=== PATIENT | female | born 1990 | race Caucasian/White ===

== ENCOUNTER 2022-01-22 04:31 | Inpatient (IN) | payer BC, SELFPAY ==
[2022-01-22] VITALS (56 sets, daily range): BP systolic 91–137; BP diastolic 55–82; PULSE 88–136; RESP 16–18; TEMP 35.9–37.3; O2SAT 94–100; BMI 38.2
[2022-01-22 05:27] LABS: ROM Internal Control Test YES-OK TO RESULT pt. (Internal QC); ROM Patient Test Negative (Negative)
[2022-01-22] MEDS: LACTATED RINGERS 500 ML 999 ML IV ×3 (05:35→09:36)
[2022-01-22] MEDS: Lactated Ringers 1,000 ML 50 ML IV (05:45)
[2022-01-22 05:48] LABS: Absolute Lymphocyte Count 1.12 X10^3/uL (0.83-4.51); Absolute Neutrophil Count 17.4 X10^3/uL (2.0-7.7); Basophil# 0.02 X10^3/uL; Basophil% 0.1 % (0-1); Eosinophil# 0.01 X10^3/uL; Eosinophils% 0.1 % (0-5); Hematocrit 38.3 % (37-47); Hemoglobin 13.1 g/dL (12.0-15.0); Lymphocyte # 1.12 X10^3/ul (0.83-4.51); Lymphocyte % 5.8 % (19-41); Mean Corp Hgb Conc 34.2 g/dL (32-36); Mean Corpuscular Volume 90.5 fL (81-99); Mean Platelet Vol. 10.5 fl (6.2-12.0); Monocyte# 0.48 X10^3/uL; Monocyte% 2.5 % (0-10); NRBC Flagged by Analyzer 0 % (0-5); Neutrophil % 90.5 % (47-70); Platelet Count 278 K/mm3 (150-450); RBC Distribution Width CV 13.2 % (11.6-14.6); RBC Distribution Width SD 43.3 fl (35.1-43.9); Red Blood Count 4.23 M/mm3 (4.2-5.4); White Blood Count 19.2 K/mm3 (4.4-11.0)
[2022-01-22 05:59] LABS: Amphetamine Urine VISTA NEGATIVE (<1000 ng/mL); Barbiturate Urine VISTA NEGATIVE (< 200 ng/mL); Benzodiazepine Urine VISTA NEGATIVE (< 200 ng/mL); Cocaine Urine VISTA NEGATIVE (< 300 ng/mL); Ecstacy Urine VISTA NEGATIVE (< 500 ng/mL); Methadone Urine VISTA NEGATIVE (< 300 ng/mL); PCP Urine VISTA NEGATIVE (< 25 ng/mL); THC Urine VISTA NEGATIVE (< 50 ng/mL); Vista UDS pH Range 5
[2022-01-22] MEDS: fentaNYL-bupivacaine (epidural) 100 ML BAG EPIDURAL ×2 (07:20→12:08)
--- NOTE | 2022-01-22 11:58 | HP.PCM.OB_ITS ---
HPI - General General Date of Admission: 01/22/22 Date of Service: 01/22/22 Chief Complaint: labor HPI Narrative KELLI OSEI, is a 31 F 5-1 para 0 with EDC of 01/29/2022 who presents complaining contractions that started approximately 24 hours before arrival. They got more more intense. When she arrived she was found to be very uncomfortable and 3 cm. She was admitted for early labor. Labor has been progressing spontaneously. Her has been complicated to date by some anxiety. Maternal Data Information Final JENNIFER: 01/29/22 Gestational age: 39 0/7 PFSH [facility] [place] Medical History (Updated 01/22/22 @ 12:[address] Vibha Grewal MD) Anxiety Family history of hearing loss at age younger than 7 years Home Medications hydroxyzine HCl 10 mg PO 01/22/22 [History Last Taken Unknown] [id number] [] 1 tab PO DAILY 01/22/22 [History Last Taken Unknown] Allergy/AdvReac Type Severity Reaction Status Date / Time No Known Allergies Allergy Verified 01/22/22 05:39 Surgical History (Updated 01/22/22 @ 05:54 by Concepcion Fernandez) History of surgery Social History Smoking Status: Former smoker History Elective abortions Hx Para 0 Spontaneous abortions Hx # Term Pregnancies Ectopic pregnancies Hx # Pregnancies Multiple births # of living children NST FHR Rate Baby A Baseline: normal Variability:: Moderate Accelerations:: 15 x 15 ROS Constitutional Constitutional: Denies fatigue, fever(s) or malaise Eyes Eyes: Denies change in vision ENT HEENT: Denies dizziness or headache(s) Cardiovascular Cardiovascular: Denies chest pain, dyspnea or lightheadedness Respiratory/Chest Respiratory/Chest: Denies cough or dyspnea Gastrointestinal Gastrointestinal: Denies change in bowel habits Genitourinary Genitourinary: Denies burning urination or genital lesions Integumentary Integumentary: Denies rash Neurologic Neurologic: Denies confusion, dizziness, headache(s), numbness or weakness Vital Signs Vital Signs Vital Signs: 01/22/22 04:51 01/22/22 05:13 01/22/22 06:34 Temperature 96.7 F L Temperature Source Temporal Pulse Rate 106 H 96 Blood Pressure 122/82 H BP Systolic 122 BP Diastolic 82 Pulse Ox 96 01/22/22 06:39 01/22/22 06:40 01/22/22 06:43 Temperature Temperature Source Pulse Rate 90 96 104 H Blood Pressure 131/66 H 134/68 H BP Systolic 131 134 BP Diastolic 66 68 Pulse Ox 98 01/22/22 06:44 01/22/22 06:48 01/22/22 06:49 Temperature Temperature Source Pulse Rate 96 91 93 Blood Pressure 127/72 H BP Systolic 127 BP Diastolic 72 Pulse Ox 98 94 96 01/22/22 06:53 01/22/22 06:55 01/22/22 06:58 Temperature Temperature Source Pulse Rate 100 118 H 117 H Blood Pressure 126/69 H 108/57 L BP Systolic 126 108 BP Diastolic 69 57 Pulse Ox 98 01/22/22 07:00 01/22/22 07:03 01/22/22 07:05 Temperature Temperature Source Pulse Rate 132 H 116 H 136 H Blood Pressure 106/58 L BP Systolic 106 BP Diastolic 58 Pulse Ox 97 97 01/22/22 07:07 01/22/22 07:08 01/22/22 07:10 Temperature Temperature Source Pulse Rate 123 H 134 H 120 H Blood Pressure 104/56 L 104/57 L BP Systolic 104 104 BP Diastolic 56 57 Pulse Ox 96 01/22/22 07:13 01/22/22 07:15 01/22/22 07:19 Temperature Temperature Source Pulse Rate 127 H 120 H 114 H Blood Pressure 112/56 L 120/61 BP Systolic 112 120 BP Diastolic 56 61 Pulse Ox 97 01/22/22 07:20 01/22/22 07:23 01/22/22 07:25 Temperature Temperature Source Pulse Rate 120 H 114 H 111 H Blood Pressure 113/55 L BP Systolic 113 BP Diastolic 55 Pulse Ox 97 98 01/22/22 07:28 01/22/22 07:30 01/22/22 07:33 Temperature Temperature Source Pulse Rate 114 H 122 H 107 H Blood Pressure 112/58 L 115/60 BP Systolic 112 115 BP Diastolic 58 60 Pulse Ox 99 01/22/22 07:35 01/22/22 07:38 01/22/22 07:40 Temperature Temperature Source Pulse Rate 115 H 108 H 96 Blood Pressure 107/58 L BP Systolic 107 BP Diastolic 58 Pulse Ox 98 96 01/22/22 08:40 01/22/22 08:45 01/22/22 09:33 Temperature 98.1 F 97.9 F Temperature Source Temporal Temporal Pulse Rate 98 117 H 121 H Blood Pressure 117/61 91/55 L BP Systolic 117 91 BP Diastolic 61 55 Pulse Ox 99 99 99 01/22/22 10:42 01/22/22 11:33 01/22/22 11:34 Temperature 97.5 F L 97.6 F L Temperature Source Temporal Temporal Pulse Rate 97 115 H Blood Pressure 112/58 L 119/60 BP Systolic 112 119 BP Diastolic 58 60 Pulse Ox 100 Weight Weight: 94.71 kg Body Mass Index (BMI) 38.2 Physical Exam Const alert and no apparent distress General Appearance: cooperative HEENT normocephalic Resp normal respiratory effort Cardio regular rate GI soft to palpation GI Narrative: gravid, nontender, appropriate for gestational age Extremity no calf tenderness General Extremity: edema Skin no wounds Rashes: No rashes noted Psych activity/motor behavior normal Labs Labs Labs: Blood Type A POSITIVE Antibody Screen NEGATIVE Hct 38.3 % (37-47) Hgb 13.1 g/dL (12.0-15.0) Assessment & Plan (1) 39 weeks gestation of : PLAN: Admit for spontaneous labor. Consented for tox screen due to history of marijuana. She stopped using marijuana when she found out she was . Estimated weight is less than 4500 g clinically and pelvis clinically adequate to expect vaginal delivery. May have epidural or other standard pain control methods as needed and as desired during labor. (2) Active labor at term:
[2022-01-22] MEDS: Lactated Ringers 1,000 ML 200 ML IV (12:53)
[2022-01-22] MEDS: Oxytocin 30 units/NS 500 ml 30 UNITS/500 ML IV.SOLN 334 UNITS IV (13:46)
--- NOTE | 2022-01-22 14:12 | EX.PCM.OBRPT ---
Assessment & Plan (1) Active labor at term: (2) 39 weeks gestation of : (3) (spontaneous vaginal delivery): Maternal Data Information Final JENNIFER: 01/29/22 Gestational age: 39 0/7 Vaginal Delivery Maternal Presentation Maternal Presentation: Active Labor Operative Information Date of Procedure: 01/22/22 Pre-Operative Diagnosis: labor Post-Operative Diagnosis: same Surgery / Procedure Performed: Spontaneous Vaginal Delivery Type of Anesthesia: Epidural Special Medications: none Drain: Whyte to straight drain Estimated Blood Loss: 300 Time of Delivery: 13:44 Findings Description of Procedure: A vigorous female was delivered ENE over a small 1 cm first-degree vaginal laceration. The remainder the infant was delivered with maternal pushing and gentle traction only in less than 15 seconds. The Pitocin infusion was initiated for active management of the third stage. The cord was clamped and cut after 1 minute. The was attended to by the waiting nursing staff. The placenta was delivered spontaneously and intact. The cervix and vagina were intact. The small first-degree vaginal laceration was repaired with a single 3-0 Vicryl repeat [id number] suture. Sponge and needle counts were correct. A vaginal sweep was completed by me. Presentation: ENE Amniotic Membrane Rupture Type: Artificial Amniotic Fluid Description: Clear Placental Delivery Description: Spontaneous Placenta Disposition: [facility] Cord Vessel Description: 3 Vessels Cord Entanglement: None A Gender: Female (Rosalba Milner) (1 minute): 8 (5 minute): 9 Delayed Cord Clamping: Yes Post Vaginal Delivery Medications Given After Delivery: IV Pitocin Episiotomy Description: None Laceration: 1st degree (vaginal) Admit VTE Documentation VTE Present on Admission: No VTE Mechan Device Prophylaxis: None VTE Pharm Prophylaxis Ordered: No Reason Prophylaxis Not Ordered: Procedure Not Indicated
[2022-01-22] MEDS: 0.9% Saline Lock 10 ML Syringe IV (16:14)
[2022-01-22] MEDS: Ibuprofen 600 MG Tablet PO (19:22)
--- NOTE | 2022-01-22 23:01 | NURSING ---
HR per monitor was varying between 90 and 106. Radial pulse assessed to be 96bpm. Auscultated normal rhythm. Will continue to monitor. HR has been slightly tachycardic at times. Pt. reports that this isn't something new or unusual for her. She occasionally feels her heart racing and pt. reports her HR is normally 90s-120s.
--- NOTE | 2022-01-22 23:14 | NURSING ---
2310- Report given to Sohail Lundy RN who will be assuming care at this time.
[2022-01-23] VITALS (9 sets, daily range): BP systolic 107–125; BP diastolic 63–73; PULSE 74–86; RESP 16–18; TEMP 36.5–36.9; O2SAT 95
--- NOTE | 2022-01-23 09:02 | PCM.PN.OB ---
Subjective Subjective Doing well per patient and nursing staff. Ambulating and taking PO without difficulty. Voiding and passing flatus. Pain controlled. , services for assistance. Denies headache, visual changes, chest pain, shortness of breath, leg pain or increased bleeding. Lochia normal. Objective Data Objective Data Vital Signs: Vital Signs Temp Pulse Resp BP Pulse Ox 98.0 F 82 18 111/63 98 01/23/22 08:21 01/23/22 08:21 01/23/22 08:21 01/23/22 08:21 01/22/22 23:00 Oxygen Delivery Method Room Air Weight: 208 lb 12.8 oz Body Mass Index (BMI) 38.2 Intake & Output: Intake and Output for Last 24 Hours 01/21/22 01/22/22 01/23/22 23:59 23:59 23:59 Intake Total 3164.06 / 3164.06 Output Total 1450 / 1450 Balance 1714.06 / 1714.06 Lab / Micro Data Result Diagrams: 01/22/22 05:35 Micro: Microbiology 01/22/22 05:35 Nasal Secretion SARS-CoV-2 Antigen (Rapid) - Final ROS Constitutional Constitutional: Reports systems reviewed and no addt'l complaints, except as documented; Denies headache(s) Eyes Eyes: Denies acute decrease in peripheral vision, blurry vision or change in vision ENT HEENT: Reports systems reviewed and no addt'l complaints, except as documented Cardiovascular Cardiovascular: Denies chest pain or dizziness Respiratory/Chest Respiratory/Chest: Denies cough, dyspnea, dyspnea on exertion, shortness of breath at rest or shortness of breath with exertion Gastrointestinal Gastrointestinal: Denies abdominal pain, diarrhea, nausea or vomiting Genitourinary Genitourinary: Denies abdominal discomfort Musculoskeletal Musculoskeletal: Denies limited range of motion Integumentary Integumentary: Reports systems reviewed and no addt'l complaints, except as documented Neurologic Neurologic: Reports systems reviewed and no addt'l complaints, except as documented Psychiatric Psychiatric: Reports systems reviewed and no addt'l complaints, except as documented Endocrine Endocrinology: Reports systems reviewed and no addt'l complaints, except as documented Hematologic/Lymphatic Hematologic/Lymphatic: Reports systems reviewed and no addt'l complaints, except as documented Allergic/Immunologic Allergic/Immunologic: Reports systems reviewed and no addt'l complaints, except as documented Physical Exam Const alert and oriented x3 General Appearance: cooperative Orientation / Consciousness: awake, oriented to person, oriented to place and oriented to time Exam Limitations: no limitations HEENT normocephalic Head and Scalp: normal to inspection, normocephalic and atraumatic Face and Sinus: normal facial exam Eyes General Eye: normal appearance of both eyes Neck full ROM Chest Chest: symmetrical chest wall rise Resp normal respiratory effort and normal air movement Auscultation: clear to auscultation bilaterally Cardio regular rate, regular rhythm, S1 normal heart sound, S2 normal heart sound, no murmurs, no rub, no gallops and no clicks GI normal to inspection, nondistended, normoactive bowel sounds and non-tender GI Narrative: fundus firm 2 below U appearance of the vagina normal Bladder / Kidney Exam: no CVA tenderness Back/Spine normal ROM Extremity normal to inspection and full ROM Skin no rashes or lesions noted Neuro oriented x3, CN's II-XII intact bilaterally and moves all extremities Sensorium / Orientation: awake, alert and oriented to person Motor Exam: clonus absent Deep Tendon Reflexes: Rt Patellar (L4): 2+ and Lt Patellar (L4): 2+ Assessment & Plan (1) (spontaneous vaginal delivery): (2) Lactating mother: PLAN: 1) Routine PP Care 2) Services 3) Pain management 4) Vitals stable 5) Hgb stable 6) Plan D/C home tomorrow
--- NOTE | 2022-01-23 15:58 | CASEMGMT ---
Social Work Labor and Delivery Consult received and noted for maternal history of anxiety and THC use. Chart reviewed. Plan: Meet with patient in the a.m. on 01.24.2022 for in person assessment, support, provision of resources for home going. -RAZA Stacy, MANAGER [employer]
[2022-01-23] MEDS: Ibuprofen 600 MG Tablet PO (21:44)
[2022-01-24 03:00] VITALS: BP 108/59; PULSE 64; RESP 18; TEMP 36.4; O2SAT 96
[2022-01-24 03:13] VITALS: BP 108/59; PULSE 63; PULSE 65; O2SAT 96
[2022-01-24 07:50] VITALS: BP 122/75; PULSE 73; PULSE 74; O2SAT 98
[2022-01-24 08:15] VITALS: BP 122/75; PULSE 74; RESP 18; TEMP 36.5
--- NOTE | 2022-01-24 08:22 | PCM.PN.OB ---
Subjective Subjective Patient seen at bedside. Denies any pain. Ambulating and voiding without difficulty. with support. Has follow up appointment with . Lochia decreasing. Desires discharge home today. Objective Data Objective Data Vital Signs: Vital Signs Temp Pulse Resp BP Pulse Ox 97.6 F L 73 18 122/75 H 98 01/24/22 03:00 01/24/22 07:50 01/24/22 03:00 01/24/22 07:50 01/24/22 07:50 Oxygen Delivery Method Room Air Weight: 208 lb 12.8 oz Body Mass Index (BMI) 38.2 Intake & Output: Intake and Output for Last 24 Hours 01/22/22 01/23/22 01/24/22 23:59 23:59 23:59 Intake Total 3164.06 / 3164.06 Output Total 1450 / 1450 Balance 1714.06 / 1714.06 Lab / Micro Data Result Diagrams: 01/22/22 05:35 Micro: Microbiology 01/22/22 05:35 Nasal Secretion SARS-CoV-2 Antigen (Rapid) - Final ROS Eyes Eyes: Denies blurry vision, change in vision or spots in vision ENT HEENT: Denies dizziness or headache(s) Cardiovascular Cardiovascular: Denies abdominal pain, chest pain or dyspnea Respiratory/Chest Respiratory/Chest: Denies cough, dyspnea, shortness of breath at rest or shortness of breath with exertion Gastrointestinal Gastrointestinal: Denies abdominal pain, diarrhea or vomiting Genitourinary Genitourinary: Denies change in urinary stream, difficulty urinating or dysuria Musculoskeletal Musculoskeletal: Reports none Integumentary Integumentary: Denies rash Neurologic Neurologic: Denies dizziness, headache(s), memory loss or weakness Physical Exam Const alert and no apparent distress General Appearance: cooperative and comfortable Exam Limitations: no limitations HEENT normocephalic Eyes General Eye: normal appearance of both eyes Neck full ROM General: normal visual inspection Chest Chest: symmetrical chest wall rise Resp normal respiratory effort and normal air movement Effort and Inspection: symmetric chest movement Auscultation: clear to auscultation bilaterally Cardio regular rate and regular rhythm GI normal to inspection, nondistended, normoactive bowel sounds Back/Spine normal ROM Extremity full ROM and no calf tenderness General Extremity: normal exam except as noted Skin no rashes or lesions noted Neuro CN's II-XII intact bilaterally Psych mental status grossly normal Assessment & Plan (1) Lactating mother: (2) (spontaneous vaginal delivery): PLAN: PPD 2 Pain control Routine care support D/C home with follow up in office
--- NOTE | 2022-01-24 08:24 | PCM.DC ---
Discharge Instructions Diet Discharge Diet: No restrictions Activity May resume sexual activity in: 6-8 weeks Weight Bearing Status: Weight bearing as tolerated Dressing / Incision Call your doctor if you observe: Fever of 101 or Higher, Inability to urinate, Using more than 1 pad per hour, Shortness of breath, Chest pain, Calf discomfort and Uncontrolled pain Follow Up Care When: 2 weeks virtual visit/ 6 weeks in office Test Results: Test results from this visit will be discussed in further detail at your follow-up appointment, if applicable. Discharge Plan Admission Admit Date/Time: 01/22/22 04:31 Primary Reason for Your Visit: Labor and Delivery Attending Provider: Vibha Grewal Primary Care Provider: Care Physician,Conchis Primary Discharge Orders/Prescriptions Prescriptions: Continued vkxcbsqj-[id number]-FA 1 mg Tablet 1 tab PO DAILY RF: 0 Discontinued hydroxyzine HCl 10 mg tablet 10 mg PO RF: 0 Referrals / Follow Up: Care Physician,No Primary [Primary Care Provider] - Disposition Disposition (needs filled in before D/C Order can be placed): Home, Self Care
[2022-01-24 14:00] VITALS: BP 120/68; PULSE 77; RESP 16; TEMP 36.3; O2SAT 96
[2022-01-24 14:31] VITALS: BP 120/68; PULSE 83; O2SAT 96
== END 2022-01-24 16:00 | disposition home or self-care (01) | DRG 807 ==
LOC: WPOUT 04:38 → WP 04:39 → WPOUT 05:06 → WP 05:06
PROVIDERS: Admitting Provider Obstetrics & Gynecology; Visit Provider Obstetrics & Gynecology
DX: O99.344 Other mental disorders complicating childbirth (principal); Z37.0 Single live birth; F41.9 Anxiety disorder, unspecified; Z79.899 Other long term (current) drug therapy; Z3A.39 39 weeks gestation of pregnancy; Z87.891 Personal history of nicotine dependence; O70.0 First degree perineal laceration during delivery
CPT/HCPCS: 59025; 59050; 80307; 84112; 85025; 86850; 86900; 86901; 87426; 99218; J7120; A4216; G0378

== ENCOUNTER 2022-04-06 12:58 | Day surgery (SDC) | payer BC, SELFPAY ==
--- NOTE | 2022-04-06 | EMB_PTH ---
PATIENT: KELLI OSEI LOC: [facility] [place] U#:[id number] AGE/SX: 31/F ROOM: RE04/06/[address]: Dr. Vibha Grewal MD : 1990 BED: DIS: 04/06/2022 SPEC #: [id number] RECD: 04/06/22 17:52 STATUS: LENORA VANESSAMalgorzata #: [id number] BENEDICT: 04/06/22 00:[address]: Vibha Grewal DEPT: SURGICAL PATHOLOGY RECD BY: Harvey Schreiber ENTERED: 04/07/22 09:03 SP TYPE: ENDOM BX/C SCOTT DR: No Primary Care Phys Tissues: Endometrium, NOS Procedures: Surgery Specimen Level IV HEADER OPERATION: Hysteroscopy, dilation and curettage PRE-OP DIAGNOSIS: Abnormal uterine bleeding TISSUE SUBMITTED: Endometrial curettings MICROSCOPIC DIAGNOSIS Endometrial curettings: Fragments of hyalinized and infarcted villi and decidual tissue, consistent with retained products of conception. Proliferative endometrium with glandular and stromal breakdown. Chronic endometritis. See comment. NEETU:brissa 04/10/2022 COMMENT Clinical correlation and appropriate follow up are necessary. MICROSCOPIC DESCRIPTION Slides are reviewed. GROSS DESCRIPTION Received in fixative is one container labeled with the patient's name and designated endometrial curettings. The specimen consists of multiple fragments of pink hemorrhagic soft tissue mixed with polypoid tissue that in aggregate measure 5 x 3 x 0.3 cm. The specimen is totally submitted in two cassettes. / NEETU:brissa 04/07/2022 TC:5 CPT: 15070
[2022-04-06 13:28] VITALS: BP 107/67; PULSE 60; RESP 16; TEMP 37.1; O2SAT 99; BMI 35.9
[2022-04-06] MEDS: Lactated Ringers 1,000 ML 15 ML IV (13:42)
[2022-04-06] MEDS: Acetaminophen 500 MG Tablet 1000 MG PO (13:43)
[2022-04-06] MEDS: Ketorolac 30 MG/ML Syringe IV (13:43)
[2022-04-06] MEDS: Doxycycline 100 MG CAPSULE PO (13:44)
[2022-04-06 13:45] LABS: Internal QC Validated? YES +Cl - CLEAR BKGD; Pregnancy, Urine Negative Negative
[2022-04-06] MEDS: Lidocaine 1% /Epi 1:100 (20ml) 20 ML Vial (15:25)
--- NOTE | 2022-04-06 15:37 | DCINST_ITS ---
Discharge Instructions Diet Discharge Diet: No restrictions Activity May resume sexual activity in: 2 weeks Lifting Restrictions: none Dressing / Incision Call your doctor if your incision/area has: Sudden Increased Bleeding and Foul Smelling Discharge Call your doctor if you observe: Fever of 101 or Higher and Using more than 1 pad per hour (for 2 hrs in a row) Follow Up Care Please Follow Up With: Vibha Grewal MD When: 2-4 weeks or as needed. Call [phone] to make an appointment or with any concerns. Test Results: Test results from this visit will be discussed in further detail at your follow- up appointment, if applicable. Discharge Plan Admission Primary Reason for Your Visit: hysteroscopy D&C Attending Provider: Vibha Grewal Primary Care Provider: Care PhysicianConchis Primary Discharge Orders/Prescriptions Prescriptions: No Action ykjooxgy-dye-Yn-FA 1 mg Tablet 1 tab PO DAILY hydroxyzine HCl 10 mg tablet 10 - 25 mg PO PRN PRN (Reason: ANXIETY) Label Comments: TAKE 1 TABLET BY MOUTH THREE TIMES DAILY NEEDED FOR ANXIETY Referrals / Follow Up: Care Physician,Conchis Primary [Primary Care Provider] - Disposition Disposition (needs filled in before D/C Order can be placed): Home, Self Care
--- NOTE | 2022-04-06 15:39 | PCM.OPRPT ---
Problems Associated Problem List Diagnoses (1) Retained placenta: (2) Abnormal uterine bleeding (AUB): Report of Operation Date of Procedure: 04/06/22 Pre-Operative Diagnosis: aub, retained POCs Post-Operative Diagnosis: same Surgery/Procedure Performed:: Hysteroscopy D&C Description of Surgical Findings:: normal cervix. Uterus w/ anterior fundal tissue that appeared consistent w/ retained POCs Surgeon: Vibha Grewal scrubbing machine operator: luz marina valdez Type of Anesthesia: MAC Anesthesiologist: Armando Currie Special Medications: none Specimen's removed: endometrial curettings Drains: none Estimated Blood Loss (mL): 10 Fluids Replaced: 1200 Description of Procedure: The patient was taken to the OR where she was prepped and draped in dorsal lithotomy position. The weighted speculum was placed in the vagina and the anterior lip of the cervix was grasped with a single-tooth tenaculum. A paracervical block was administered with 1% lidocaine with 2-100,000 epinephrine solution. The cervix was dilated serially with Hegar dilators. The 5mm hysteroscope was placed into the uterine cavity and the above findings were noted. Bilateral tubal ostia were identified. The hysteroscope was removed. A gentle sharp curettage was done of the uterine cavity. The polyp forceps were used to grasp and remove the piece of tissue on the anterior fundus and several small pieces. This was placed on the Telfa to send to pathology as well. The hysteroscope was replaced and confirmed that the entire portion of what appeared to be placental tissue had been removed. There was just ragged endometrium and no other focal abnormalities at this point the instruments were removed from the vagina. The specimen was handed off and sent to pathology. All sponge and needle counts were correct. Vaginal sweep was performed by me. The patient was awakened and taken to the recovery room in stable condition. Hysteroscopic ins: 150cc normal saline Hysteroscopic outs:100cc Findings: Endometrial cavity: Anterior fundus had what appeared to be a piece of placental tissue that appeared to be approximately be 1 x 1 cm Cervix: Normal Vagina: Normal Grafts/Implants Used: none Procedure Start Time: 15:24 Procedure Stop Time: 15:35 Complications none Admit VTE Documentation VTE Present on Admission: No VTE Mechan Device Prophylaxis: SCD's VTE Pharm Prophylaxis ordered?: No
[2022-04-06 15:45] VITALS: BP 105/67; BP 107/67; PULSE 55; RESP 16; TEMP 36.5; O2SAT 99
[2022-04-06 15:50] VITALS: BP 105/63; BP 107/67; PULSE 54; RESP 16; O2SAT 99
[2022-04-06 15:55] VITALS: BP 107/67; BP 108/67; PULSE 65; RESP 16; O2SAT 100
[2022-04-06 16:00] VITALS: BP 107/67; BP 111/71; PULSE 56; RESP 16; TEMP 36.4; O2SAT 100
[2022-04-06 16:51] VITALS: BP 107/67; BP 121/71; PULSE 69; RESP 16; TEMP 36.4; O2SAT 97
== END 2022-04-06 17:27 | disposition home or self-care (01) ==
LOC: SDC 13:07 → AC 13:12
PROVIDERS: Anesthesiology; Referring Provider Obstetrics & Gynecology; Visit Provider Obstetrics & Gynecology
PROC: 0UDB8ZZ Extraction of Endometrium, Via Natural or Artificial Opening Endoscopic (ICD-10-PCS; CPT 58558; principal; 2022-04-06 14:30)
DX: O73.1 Retained portions of placenta and membranes, without hemorrhage (principal); F41.9 Anxiety disorder, unspecified; F32.A Depression, unspecified; F90.9 Attention-deficit hyperactivity disorder, unspecified type
CPT/HCPCS: 58558; 00952; 81025; 88305; J7120; J2405

== ENCOUNTER 2024-08-12 07:24 | Emergency (ER) | payer BC, OTHER, SELFPAY ==
[2024-08-12 07:24] VITALS: BP 135/78; PULSE 97; RESP 14; TEMP 37.2; O2SAT 100; BMI 40.5
--- NOTE | 2024-08-12 07:30 | EDS_ITS ---
HPI HPI - URI History of Present Illness Chief Complaint: Cough Informant: patient Onset/Context/Timing Onset: Weeks (2) Context: Gradual Onset Timing: Continuous Quality: Clear sputum Location: Chest Worsened by: - (Nothing) Relieved by: - (Nothing) Associated Symptoms Associated Symptoms: Positive for Headache, Nausea, Shortness of Breath and Productive Cough (Clear sputum); Negative for Nasal Congestion, Sinus Pressure, Myalgias, Vomiting, Diarrhea, Chest Pain, Nonproductive cough or Hemoptysis Narrative Narrative: Patient presents with a cough that has been getting worse over the past 2 weeks. Patient states she is coughing up some clear sputum. Patient states it has been constant for the past 2 weeks. Patient states she went to the urgent care yesterday. Patient states that they thought she had pneumonia and had a chest x-ray. Patient states that chest x-ray was clear. Patient states she was instructed to get [id number] cough medication. Patient states she did not pick this up from the pharmacy. Patient admits to some shortness of breath. Patient admits to some nausea from the coughing. Patient denies any vomiting or diarrhea. ROS ROS ED Constitutional Constitutional ED: Denies chills or fever(s) Eyes Eyes: Denies blurry vision or change in vision ENT ENT ED: Denies rhinorrhea or sore throat Cardiovascular Cardiovascular: Reports palpitations; Denies chest pain Respiratory/Chest Respiratory/Chest: Reports cough and dyspnea Gastrointestinal Gastrointestinal: Reports nausea; Denies vomiting Genitourinary Genitourinary ED: Denies dysuria or hematuria Musculoskeletal Musculoskeletal: Reports back pain; Denies neck pain Integumentary Denies abscess or rash Neurologic Neurologic: Reports headache(s); Denies weakness Allergic/Immunologic Allergic/Immunologic ED: Denies mouth swelling or urticaria [facility] Medical History Wears glasses Depression Migraine headache Gastric reflux Non-smoker History of echocardiogram Hypertension History of irregular heartbeat Lactating mother (spontaneous vaginal delivery) Active labor at term 39 weeks gestation of Family history of hearing loss at age younger than 7 years Anxiety Home Medications ?Medication ?Instructions ?Recorded ?Last Taken ?Type [id number]-[id number]-[id number]-FA 1 mg 1 tab PO DAILY 01/22/22 Unknown History tablet hydroxyzine HCl 10 mg tablet 10 - 25 mg PO PRN PRN ANXIETY 04/05/22 Unknown History Allergy/AdvReac Type Severity Reaction Status Date / Time No Known Allergies Allergy Verified 04/06/22 13:26 Surgical History Hx of wisdom tooth extraction History of surgery Social History Smoking Status: Never smoker EXAM Physical Exam Const Vital Signs: 08/12/24 07:24 08/12/24 08:09 Temperature 99 F Temperature Source Temporal Pulse Rate 97 Respiratory Rate 14 Respiratory Effort Normal Blood Pressure 135/78 H Blood Pressure Mean 97 Pulse Ox 100 Oxygen Delivery Method Room Air Positive well nourished and well developed General Appearance ED: well developed and NAD HEENT Reports moist mucous membranes normocephalic and atraumatic Neck supple and no JVD Resp normal respiratory effort and clear to auscultation bilaterally Cardio Rate: regular rate Rhythm: regular rhythm GI non-tender and non-distended Auscultation: normoactive bowel sounds Palpation: soft Neuro oriented x3, CN's II-XII intact bilaterally and no sensory deficits noted Sensorium / Orientation: alert Motor Exam: strength 5/5 throughout Psych mental status grossly normal MDM MDM MDM Narrative Medical decision making narrative: Differential diagnose includes pneumonia, bronchitis, and viral illness. Chest x-ray will be obtained to assess for pneumonia. COVID-19, influenza, and RSV PCR will be obtained to assess for viral illness. Lab Data Lab results narrative: COVID-19 PCR was reviewed and was negative. Influenza PCR was reviewed and was negative for influenza A and influenza B. RSV PCR was reviewed and was negative. Radiography Chest X-Ray - ED: 2 View, Read by ED Physician, Read by Radiologist and No Acute Disease Diagnostic Testing: Clinical Impression(s) from Imaging Studies Chest X-Ray 08/12/24 07:55 IMPRESSION: No acute cardiopulmonary disease. Electronically Signed: Aleksander Cronin MD at 8:05 EST , PA and lateral chest x-ray was obtained. There are 2 views. On my independent interpretation, lung barnes are clear. There is normal cardiac silhouette. Bony thorax is normal. There is no acute process noted. Radiologist also interpreted the x-ray and agrees. Treatment and Re-Evaluation Narrative: Patient was advised of her findings. Patient was advised that this is most likely a viral upper respiratory infection. Patient was instructed use [id number] cough medications as needed. Patient was instructed to follow- up with her primary care physician in 5 to 7 days. Patient was instructed to return if worse in any way. Patient understood and was agreeable with the plan. All questions were answered. Discharge Plan Triage Chief Complaint: Cough ED Provider: Morgan Barfield Dx/Rx/DC Orders Clinical Impression: Viral upper respiratory infection, Cough Instructions: ED URI, Viral, No Abx (Adult) Prescriptions: No Action [id number]-var-Sw-FA 1 mg Tablet 1 tab PO DAILY hydroxyzine HCl 10 mg tablet 10 - 25 mg PO PRN PRN (Reason: ANXIETY) Patient Comments: TAKE 1 TABLET BY MOUTH THREE TIMES DAILY NEEDED FOR ANXIETY Primary Care Provider: Chad Villafana Referrals: Chad Villafana MD [Primary Care Provider] - 5-7 Days Care Physician,No Primary [Non-Staff] - Activity Restrictions/Additional Instructions: You may use [id number] cough medications as needed. Call your primary care physician today to schedule a follow-up appointment in 5 to 7 days. Print Language: Nigerian Disposition Disposition: Home, Self Care
--- NOTE | 2024-08-12 07:55 | RAD_ITS ---
EXAM: XR CHEST, 2 VIEWS CLINICAL INDICATION: Cough TECHNIQUE: Frontal and lateral views of the chest. COMPARISON: No relevant prior studies available. FINDINGS: LUNGS AND PLEURAL SPACES: Normal. No consolidation or edema. No pneumothorax. No effusion. HEART: Normal heart size. MEDIASTINUM: No mediastinal or hilar mass. BONES/JOINTS: No acute abnormality. RAD/Chest PA and Lateral IMPRESSION: No acute cardiopulmonary disease. Electronically Signed: Aleksander Cronin MD at 8:05 EST ,
[2024-08-12 09:14] VITALS: BP 135/78; PULSE 97; RESP 14; TEMP 37.2; O2SAT 100
== END 2024-08-12 09:16 | disposition home or self-care (01) ==
PROVIDERS: Emergency Provider Emergency Medicine; PCP Internal Medicine; Visit Provider Emergency Medicine
DX: R05.9 Cough, unspecified (principal); J06.9 Acute upper respiratory infection, unspecified; I10 Essential (primary) hypertension; F41.9 Anxiety disorder, unspecified; Z79.899 Other long term (current) drug therapy
CPT/HCPCS: 71046; 87631; 99282